=== PATIENT | male | born 1985 | race Caucasian/White ===

== ENCOUNTER 2019-10-24 11:44 | Emergency (ER) | payer OTHER ==
[~2019-10-24] VITALS: Ht 182.9 cm; Wt 106.6 kg
[2019-10-24] MEDS ORDERED: MEDROLDOSEPACK PO (12:39)
[2019-10-24 12:54] VITALS: BP 157/91
== END 2019-10-24 12:56 | disposition home or self-care (01) ==
LOC: M.ERS 11:44
DX: M77.11 Lateral epicondylitis, right elbow (principal); Z88.1 Allergy status to other antibiotic agents; Z88.5 Allergy status to narcotic agent; Z88.0 Allergy status to penicillin